=== PATIENT | female | born 1960 | race African-American/Black ===

== ENCOUNTER 2023-01-25 13:11 | Emergency (ER) | payer BC, OTHER ==
[2023-01-25 13:23] VITALS: BP 170/62; PULSE 56; RESP 20; TEMP 98; BMI 37.3
[2023-01-25] MEDS ORDERED: KETOROLAC TROMETHAMINE 15 MG/ML VIAL IM ONE (14:37)
[2023-01-25] MEDS ORDERED: ACETAMINOPHEN 500 MG TABLET (FP) PO ONE (14:37)
[2023-01-25] MEDS ORDERED: DEXAMETHASONE SOD PHOSPHATE 10 MG/1 ML VIAL PO ONE (14:38)
[2023-01-25] MEDS ORDERED: METHOCARBAMOL 500 MG TABLET PO ONE (14:39)
[2023-01-25] MEDS ORDERED: METHOCARBAMOL 500 MG TABLET ONE ×2 (15:19→15:21)
[2023-01-25] MEDS ORDERED: KETOROLAC TROMETHAMINE 15 MG/ML VIAL ONE (15:19)
[2023-01-25] MEDS ORDERED: ACETAMINOPHEN 500 MG TABLET (FP) ONE (15:20)
[2023-01-25] MEDS ORDERED: DEXAMETHASONE SOD PHOSPHATE 10 MG/1 ML VIAL ONE (15:20)
== END 2023-01-25 16:35 | disposition home or self-care (01) ==
LOC: JERFT 13:11
PROC: 3E033GC Introduction of Other Therapeutic Substance into Peripheral Vein, Percutaneous Approach (ICD-10-PCS; principal; 2023-01-25)
PROC: 3E0233Z Introduction of Anti-inflammatory into Muscle, Percutaneous Approach (ICD-10-PCS; 2023-01-25)
DX: M25.512 Pain in left shoulder (principal); M54.2 Cervicalgia; W18.40XA Slipping, tripping and stumbling without falling, unspecified, initial encounter; W22.01XA Walked into wall, initial encounter
CPT/HCPCS: 73030-TC-LT-FY; 99284-25; J1100